=== PATIENT | female | born 1990 | race Two or more races ===

== ENCOUNTER 2016-05-30 22:41 | Emergency (ER) | payer BC ==
[~2016-05-30] VITALS: Ht 157.5 cm; Wt 52.2 kg
--- NOTE | 2016-05-30 23:02 | NUR ---
PT AMBULATORY TO ER BED 09. C/O DIFFUSE ABDOMINAL PAIN W/ N/V/D X TODAY. 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 GOWNED AND PLACED ON MONITOR. STABLE VITALS. JOSE D PATEL.
--- NOTE | 2016-05-30 23:10 | NUR ---
PROVIDED W/ URINE SPECIMEN CUP. PT UNABLE TO PROVIDE URINE AT THIS TIME.
--- NOTE | 2016-05-30 23:15 | NUR ---
DR PAYTON AT BEDSIDE FOR EVAL.
[2016-05-30] MEDS ORDERED: ONDANSETRON HCL/PF 4 MG/2 ML VIAL ONE (23:26)
[2016-05-30] MEDS ORDERED: IV NS 0.9% 1,000 ML ONE (23:26)
[2016-05-30] MEDS ORDERED: IV SET PRIMARY 1 EA INFUS.SET MC ONE (23:26)
--- NOTE | 2016-05-30 23:27 | NUR ---
IV LINE STARTED BLOOD DRAWN AND SENT TO LAB.
[2016-05-30] MEDS ORDERED: IV NS 0.9% 1,000 ML BAG IV ONE (23:30)
[2016-05-30] MEDS ORDERED: ONDANSETRON HCL/PF 4 MG/2 ML VIAL IVP ONE (23:30)
[2016-05-30 23:34] LABS: EOSINOPHILS % (AUTO) 0.2 % (0.0-6.0); HEMATOCRIT 45 % (33-45); HEMOGLOBIN 14.9 g/dL (11.5-14.8); LYMPHOCYTES # (AUTO) 0.4 /CMM (0.8-4.8); LYMPHOCYTES % (AUTO) 2.8 % (20.0-44.0); MEAN CORPUSCULAR HEMOGLOBIN 29 PG (26.0-33.0); MEAN CORPUSCULAR HGB CONC 33 g/dl (31.0-36.0); MEAN CORPUSCULAR VOLUME 88 fL (82-100); MONOCYTES # (AUTO) 0.4 /CMM (0.1-1.30); NEUTROPHILS # (AUTO) 12.3 /CMM (1.8-8.9); PLATELET COUNT (AUTO) 218 /CMM (150-450); RDW COEFFICIENT OF VARIATION 13.9 (11.5-15.0); RED BLOOD CELL COUNT(AUTO) 5.09 MIL/uL (4.0-5.2); WHITE BLOOD COUNT (AUTO) 13.1 K/uL (4.3-11.0)
[2016-05-30 23:45] LABS: CALCIUM, SERUM 8.9 mg/dL (8.5-10.1); CREATININE 0.8 mg/dL (0.6-1.3); POTASSIUM 3.9 mmol/L (3.5-5.1)
--- NOTE | 2016-05-30 23:45 | NUR ---
REPORT TO CHARGE NURSE ELFEGO FOR SARAH.
[2016-05-30 23:51] LABS: ALBUMIN 4.4 g/dL (3.4-5.0); BILIRUBIN,DIRECT 0.1 mg/dL (0.0-0.2); BILIRUBIN,TOTAL 0.6 mg/dL (0.2-1.0)
[2016-05-31] MEDS ORDERED: ONDANSETRON HCL/PF 4 MG/2 ML VIAL ONE (00:10)
--- NOTE | 2016-05-31 00:12 | NUR ---
URINE COLLECTED. SENT TO LAB.
[2016-05-31] MEDS ORDERED: ONDANSETRON HCL/PF 4 MG/2 ML VIAL IV ONE (00:30)
--- NOTE | 2016-05-31 00:34 | NUR ---
PT TO CT.
[2016-05-31 00:51] LABS: APPEARANCE,URINE SL CLOUDY (CLEAR); BILIRUBIN,URINE 1+ (NEGATIVE); BLOOD, URINE TRACE-INTA Ery/uL (NEGATIVE); COLOR,URINE DARK YELLO (YELLOW); KETONES,URINE 3+ (NEGATIVE); LEUKOCYTE ESTERASE ,URINE NEGATIVE (NEGATIVE); NITRITE, URINE NEGATIVE (NEGATIVE); PH,URINE 6.5 (5.0-8.0); PROTEIN,URINE 1+ mg/dl (NEGATIVE); UGLUCOSE NEGATIVE (NEGATIVE)
[2016-05-31 00:55] LABS: PREGNANCY TEST URINE QUAL NEGATIVE (NEGATIVE)
[2016-05-31 00:59] LABS: ADD URINE CULTURE NO; BACTERIA,URINE Rare /HPF (None Seen); MUCUS,URINE Rare /LPF (None Seen); SQUAMOUS EPITHELIAL CELL,UR Few /HPF (None Seen); WBC,URINE 0-3 /HPF (0-3)
[2016-05-31] MEDS ORDERED: LORAZEPAM INJ 2 MG/ML VIAL ONE (01:46)
[2016-05-31] MEDS ORDERED: LORAZEPAM INJ 2 MG/ML VIAL IV ONE (02:00)
--- NOTE | 2016-05-31 02:42 | NUR ---
IV removed. Catheter intact and site benign. Pressure and 4x4 applied to site. No bleeding noted. Patient discharged to home in stable condition. Written and verbal after care instructions given. Patient verbalizes understanding of instruction. ambulatory with a steady gait. instructed pt not to drive. pt verbalize understanding. pt accompanied by mother.
[2016-05-31 02:46] VITALS: BP 111/78
== END 2016-05-31 02:47 | disposition home or self-care (01) ==
LOC: ER 22:43
DX: R11.2 Nausea with vomiting, unspecified (principal); R19.7 Diarrhea, unspecified; F41.9 Anxiety disorder, unspecified
CPT/HCPCS: 36415; 71010-TC; 80048-TC; 80076-TC; 81000-TC; 83690-TC; 84703-TC; 85025-TC; A4606; J2060; J2405; J7030; Z7610